=== PATIENT | male | born 1965 | race Caucasian/White ===

== ENCOUNTER 2017-08-04 07:02 | Emergency (ER) | payer OTHER ==
[~2017-08-04] VITALS: Ht 165.1 cm; Wt 60.3 kg
[~2017-08-04 07:02] MED LIST: COLACE100 MG PO; MELOXICAM15 M1 PO; NOR10T PO; NORCO1 TA2 PO; OMEPRAZOLE DR20 M1 PO; PROMETHAZINE HY25 M1 PO
[2017-08-04 09:07] VITALS: BP 127/95
== END 2017-08-04 09:31 | disposition home or self-care (01) ==
LOC: ED 07:02
DX: G89.29 Other chronic pain (principal); M54.5 Low back pain; K21.9 Gastro-esophageal reflux disease without esophagitis
CPT/HCPCS: J1170; J1885; J2930

== ENCOUNTER 2017-10-10 18:20 | Emergency (ER) | payer MEDICAID ==
[~2017-10-10] VITALS: Ht 165.1 cm; Wt 59.0 kg
[2017-10-10 18:29] VITALS: Ht 165.1 cm; Wt 59.0 kg
[2017-10-10 20:57] VITALS: BP 132/99
== END 2017-10-10 20:57 | disposition home or self-care (01) ==
LOC: ED 18:20
DX: S82.891A Other fracture of right lower leg, initial encounter for closed fracture (principal); S80.211A Abrasion, right knee, initial encounter; Z90.49 Acquired absence of other specified parts of digestive tract; V06.1 Pedestrian injured in collision with other nonmotor vehicle in traffic accident; Y93.89 Activity, other specified; Y92.413 State road as the place of occurrence of the external cause; Y99.8 Other external cause status
CPT/HCPCS: 90715; J2270; Q0162

== ENCOUNTER 2017-10-13 12:43 | Inpatient (IN) | payer MEDICAID ==
[~2017-10-13] VITALS: Ht 165.1 cm; Wt 54.2 kg
[2017-10-13 15:08] LABS: BASOPHIL % 0.5 % (0-2); PLATELET COUNT 223 x10^3mcL (130-400); RED CELL DISTRIBUTION WIDTH 13.5 % (11.5-14.5)
[2017-10-13 15:16] LABS: CALCIUM 8.9 mg/dL (8.5-10.1); CARBON DIOXIDE 29.3 mmol/L (21-32); CHLORIDE SERUM 104 mmol/L (98-107); CREATININE SERUM 0.9 mg/dL (0.7-1.3); GFR1 > 60 mL/min; GLUCOSE SERUM 87 mg/dL (74-106); POTASSIUM SERUM 3.9 mmol/L (3.5-5.1); SODIUM SERUM 143 mmol/L (136-145)
[2017-10-13 15:20] LABS: ALBUMIN 3.9 g/dL (3.4-5.0); ALKALINE PHOSPHATASE 114 U/L (46-116); ALT/SGPT 69 U/L (16-63); AST/SGOT 40 U/L (15-37); BILIRUBIN TOTAL 0.5 mg/dL (0.20-1.00); CHOLESTEROL 173 mg/dL (<200); HDL CHOLESTEROL 48 mg/dL (40-60); TOTAL PROTEIN, SERUM 7.6 g/dL (6.4-8.2)
[2017-10-13 15:37] LABS: CHOLESTEROL/HDL RATIO 3.7; MAGNESIUM 2.1 mg/dL (1.8-2.4); PHOSPHOROUS 2.4 mg/dL (2.5-4.9)
[2017-10-13 15:45] VITALS: BP 151/92
[2017-10-13 15:48] LABS: FREE T4 1.06 ng/dL (0.76-1.46); FREE THYROXINE INDEX 2.5 ug/dL (1.4-4.5); T4(THYROXINE) 6.6 ug/dL (4.7-13.3)
[2017-10-13 15:49] LABS: microscopic required? NO
[2017-10-13 16:07] LABS: urine erythrocyte NEGATIVE (NEGATIVE)
[2017-10-13 16:18] LABS: AMPHETAMINE QUAL UR NONE DETECTED (NEG <=1000)
[2017-10-13 17:01] LABS: T3 TOTAL 0.97 ng/mL
[2017-10-13] MEDS ORDERED: RISPERIDONE2 M1 PO (17:28)
[2017-10-13 21:40] VITALS: BP 115/79
[2017-10-14 05:48] VITALS: BP 117/77
[2017-10-14 06:21] LABS: BASOPHIL % 0.3 % (0-2); PLATELET COUNT 172 x10^3mcL (130-400); RED CELL DISTRIBUTION WIDTH 13.6 % (11.5-14.5)
[2017-10-14 07:00] LABS: CALCIUM 8.3 mg/dL (8.5-10.1); CARBON DIOXIDE 25.7 mmol/L (21-32); CHLORIDE SERUM 107 mmol/L (98-107); CREATININE SERUM 0.7 mg/dL (0.7-1.3); GFR1 > 60 mL/min; GLUCOSE SERUM 103 mg/dL (74-106); PHOSPHOROUS 3.6 mg/dL (2.5-4.9); POTASSIUM SERUM 4.2 mmol/L (3.5-5.1); SODIUM SERUM 141 mmol/L (136-145)
[2017-10-14 09:20] VITALS: BP 128/87
[2017-10-14 13:12] LABS: IRON 70 ug/dL (65-170)
[2017-10-14 13:13] LABS: TOTAL IRON BINDING CAPACITY 232 ug/dL (250-450)
[2017-10-14 13:20] VITALS: BP 134/92
[2017-10-14 13:55] LABS: RED BLOOD CELLS 4.33 M/mm3 (4.52-5.90)
[2017-10-14 17:18] VITALS: BP 126/87
[2017-10-14 20:44] VITALS: BP 141/94
[2017-10-15 05:56] VITALS: BP 98/77
[2017-10-15 07:09] LABS: CALCIUM 8.6 mg/dL (8.5-10.1); CARBON DIOXIDE 26.4 mmol/L (21-32); CHLORIDE SERUM 107 mmol/L (98-107); CREATININE SERUM 0.7 mg/dL (0.7-1.3); GFR1 > 60 mL/min; GLUCOSE SERUM 95 mg/dL (74-106); POTASSIUM SERUM 4.3 mmol/L (3.5-5.1); SODIUM SERUM 141 mmol/L (136-145)
[2017-10-15 07:13] LABS: MAGNESIUM 1.8 mg/dL (1.8-2.4); PHOSPHOROUS 3.4 mg/dL (2.5-4.9)
[2017-10-15 07:26] LABS: BASOPHIL % 0.5 % (0-2); PLATELET COUNT 195 x10^3mcL (130-400); RED CELL DISTRIBUTION WIDTH 13.6 % (11.5-14.5)
[2017-10-15 12:17] VITALS: BP 147/94
[2017-10-15 17:03] VITALS: BP 113/67
[2017-10-15 20:41] VITALS: BP 123/79
[2017-10-16 05:46] VITALS: BP 113/71
[2017-10-16 06:52] LABS: BASOPHIL % 0.3 % (0-2); PLATELET COUNT 182 x10^3mcL (130-400); RED CELL DISTRIBUTION WIDTH 13.4 % (11.5-14.5)
[2017-10-16 07:15] LABS: CARBON DIOXIDE 24.7 mmol/L (21-32); CHLORIDE SERUM 108 mmol/L (98-107); CREATININE SERUM 0.8 mg/dL (0.7-1.3); GFR1 > 60 mL/min; GLUCOSE SERUM 104 mg/dL (74-106); MAGNESIUM 1.7 mg/dL (1.8-2.4); POTASSIUM SERUM 4.4 mmol/L (3.5-5.1); SODIUM SERUM 141 mmol/L (136-145)
[2017-10-16 08:25] VITALS: BP 118/74
[2017-10-16 12:18] VITALS: BP 124/81
[2017-10-16 16:50] VITALS: BP 124/84
[2017-10-16 21:13] VITALS: BP 131/80
[2017-10-17 05:37] VITALS: BP 121/79
[2017-10-17 08:26] VITALS: BP 130/88
[2017-10-17 13:44] VITALS: BP 130/86
[2017-10-17 18:14] VITALS: BP 132/78
[2017-10-17 20:00] VITALS: BP 119/79
[2017-10-17 20:48] VITALS: BP 114/81
[2017-10-18 05:38] VITALS: BP 139/93
[2017-10-18 06:42] LABS: CALCIUM 8.4 mg/dL (8.5-10.1); CHLORIDE SERUM 104 mmol/L (98-107); CREATININE SERUM 0.8 mg/dL (0.7-1.3); GFR1 > 60 mL/min; GLUCOSE SERUM 112 mg/dL (74-106); MAGNESIUM 1.9 mg/dL (1.8-2.4); POTASSIUM SERUM 4.6 mmol/L (3.5-5.1); SODIUM SERUM 139 mmol/L (136-145)
[2017-10-18 07:31] LABS: BASOPHIL % 0.4 % (0-2); PLATELET COUNT 204 x10^3mcL (130-400); RED CELL DISTRIBUTION WIDTH 13.3 % (11.5-14.5)
[2017-10-18 08:50] VITALS: BP 121/88
[2017-10-18 14:00] VITALS: BP 98/77
[2017-10-18 19:30] VITALS: BP 112/73
[2017-10-18 20:07] VITALS: Ht 165.1 cm; Wt 54.2 kg
[2017-10-19 04:25] VITALS: BP 90/54
[2017-10-19 06:23] LABS: BASOPHIL % 0.5 % (0-2); PLATELET COUNT 242 x10^3mcL (130-400); RED CELL DISTRIBUTION WIDTH 13.4 % (11.5-14.5)
[2017-10-19 06:43] LABS: CALCIUM 8.6 mg/dL (8.5-10.1); CARBON DIOXIDE 29.1 mmol/L (21-32); CHLORIDE SERUM 102 mmol/L (98-107); CREATININE SERUM 0.9 mg/dL (0.7-1.3); GFR1 > 60 mL/min; GLUCOSE SERUM 104 mg/dL (74-106); MAGNESIUM 1.8 mg/dL (1.8-2.4); PHOSPHOROUS 3.7 mg/dL (2.5-4.9); POTASSIUM SERUM 4.6 mmol/L (3.5-5.1); SODIUM SERUM 139 mmol/L (136-145)
[2017-10-19 06:51] VITALS: BP 122/85
[2017-10-19 09:10] VITALS: BP 112/73
[2017-10-19] MEDS ORDERED: NOR10T PO (09:56)
[2017-10-19 13:04] VITALS: BP 112/73
== END 2017-10-19 13:50 | disposition home or self-care (01) | DRG 313 ==
LOC: ED 12:43 → DU 14:18 → EDBEDREQ 14:23 → DU 15:39 → MU 10-18 17:06
PROVIDERS: Emergency Medicine; Family Medicine; Family Medicine Sports Medicine; Neuromusculoskeletal Medicine, Sports Medicine
PROC: 0QSJ04Z Reposition Right Fibula with Internal Fixation Device, Open Approach (ICD-10-PCS; 2017-10-15)
PROC: 0QSG04Z Reposition Right Tibia with Internal Fixation Device, Open Approach (ICD-10-PCS; principal; 2017-10-15 07:30)
DX: S82.841A Displaced bimalleolar fracture of right lower leg, initial encounter for closed fracture (principal); E83.42 Hypomagnesemia; I10 Essential (primary) hypertension; E83.39 Other disorders of phosphorus metabolism; F31.9 Bipolar disorder, unspecified; K21.9 Gastro-esophageal reflux disease without esophagitis; R73.03 Prediabetes; E78.5 Hyperlipidemia, unspecified; Z53.29 Procedure and treatment not carried out because of patient's decision for other reasons; D64.9 Anemia, unspecified; Z88.6 Allergy status to analgesic agent; Z90.49 Acquired absence of other specified parts of digestive tract; V89.2XXA Person injured in unspecified motor-vehicle accident, traffic, initial encounter; Y93.89 Activity, other specified; Y92.89 Other specified places as the place of occurrence of the external cause; Y99.8 Other external cause status; Z83.3 Family history of diabetes mellitus; Z80.9 Family history of malignant neoplasm, unspecified; Z68.21 Body mass index [BMI] 21.0-21.9, adult
CPT/HCPCS: 76001; 83880; 84439; 94150; 97110-GP; 97116-GP; 97530-GP; C1713; J0690; J1170; J1644; J1885; J2250; J2270; J2704; J3010; J3475; J3490; J7030; J7120

== ENCOUNTER 2018-09-17 18:16 | Emergency (ER) | payer MEDICAID ==
[~2018-09-17] VITALS: Ht 165.1 cm; Wt 58.1 kg
[~2018-09-17 18:16] MED LIST changes: +RISPERIDONE2 M1 PO
[2018-09-17 18:30] VITALS: Ht 165.1 cm; Wt 58.1 kg
[2018-09-17 19:40] VITALS: BP 148/80
== END 2018-09-17 19:40 | disposition home or self-care (01) ==
LOC: ED 18:16
DX: J06.9 Acute upper respiratory infection, unspecified (principal); K21.9 Gastro-esophageal reflux disease without esophagitis; Z90.49 Acquired absence of other specified parts of digestive tract; Z88.8 Allergy status to other drugs, medicaments and biological substances

== ENCOUNTER 2020-08-10 23:03 | Emergency (ER) | payer OTHER ==
[~2020-08-10] VITALS: Ht 165.1 cm; Wt 59.4 kg
[2020-08-10 23:18] VITALS: Ht 165.1 cm; Wt 59.4 kg
[2020-08-11 00:05] LABS: BASOPHIL % 0.9 % (0.2-1.5); PLATELET COUNT 246 x10^3mcL (152-348); RED CELL DISTRIBUTION WIDTH 13.8 % (12.1-16.2)
[2020-08-11 01:00] LABS: CARBON DIOXIDE 29.1 mmol/L (21-32); CHLORIDE SERUM 103 mmol/L (98-107); CREATININE SERUM 0.9 mg/dL (0.7-1.3); GFR1 > 60 mL/min; GLUCOSE SERUM 122 mg/dL (74-106); POTASSIUM SERUM 4.2 mmol/L (3.5-5.1); SODIUM SERUM 141 mmol/L (136-145)
[2020-08-11 01:04] LABS: ALKALINE PHOSPHATASE 129 U/L (46-116); ALT/SGPT 58 U/L (16-63); AST/SGOT 29 U/L (15-37); BILIRUBIN TOTAL 0.42 mg/dL (0.20-1.00); TOTAL PROTEIN, SERUM 7.3 g/dL (6.4-8.2)
[2020-08-11 03:05] VITALS: BP 143/86
== END 2020-08-11 03:05 | disposition home or self-care (01) ==
LOC: ED 23:03
PROVIDERS: Emergency Medicine
DX: R11.0 Nausea (principal); R42 Dizziness and giddiness; Z90.49 Acquired absence of other specified parts of digestive tract; Z88.8 Allergy status to other drugs, medicaments and biological substances
CPT/HCPCS: J8597